=== PATIENT | female | born 1955 | race African-American/Black ===

== ENCOUNTER 2021-05-06 07:22 | Emergency (ER) | payer BC, OTHER ==
[~2021-05-06] VITALS: Ht 167.6 cm; Wt 100.0 kg
[2021-05-06] MEDS ORDERED: KETOROLAC 30MG/ML VIAL IV STA (07:46)
[2021-05-06] MEDS ORDERED: METOCLOPRAMIDE HCL 10MG/2ML VIAL IV ONE (08:00)
[2021-05-06 10:01] LABS: BASOPHILS % 0.4 % (0.0-2.0); EOSINOPHILS % 0.1 % (0.0-5.0); HEMATOCRIT. 36.5 % (36.0-48.0); HEMOGLOBIN. 12.1 g/dL (12.0-16.0); LYMPHOCYTES % 17.9 % (20.0-50.0); MEAN CORPUSCULAR VOLUME 93.3 fL (81.0-99.0); MEAN PLATELET VOLUME 9.5 fl (7.4-10.4); MONOCYTES % 10.1 % (2.0-8.0); NEUTROPHILS % 71.5 % (40.0-76.0); PLATELET 234 x1000/uL (130-400); RED BLOOD CELL COUNT 3.91 mill/uL (4.2-5.4); RED CELL DISTRIBUTION WIDTH 13.4 % (11.6-14.6)
[2021-05-06 10:09] LABS: CHLORIDE 102 mEq/L (98-107)
[2021-05-06 11:22] LABS: CLARITY URINE CLEAR (CLEAR); COLOR URINE YELLOW (YELLOW); KETONES URINE NEGATIVE (NEGATIVE); LEUKOCYTE ESTERASE URINE NEGATIVE (NEGATIVE); NITRITE URINE NEGATIVE (NEGATIVE); OCCULT BLOOD URINE TRACE (NEGATIVE); PH URINE 6.5 (4.5-8.0); PROTEIN URINE NEGATIVE (NEGATIVE); SPECIFIC GRAVITY URINE 1.009 (1.005-1.030); UROBILINOGEN URINE 0.2 E.U./dL (0.2-1.0)
[2021-05-06] MEDS ORDERED: TOPUD PO (11:32)
[2021-05-06] MEDS ORDERED: METO-293 PO (11:32)
[2021-05-06 12:04] VITALS: BP 140/68
== END 2021-05-06 12:04 | disposition home or self-care (01) ==
LOC: ER 07:22
DX: R10.30 Lower abdominal pain, unspecified (principal); R51.9 Headache, unspecified
CPT/HCPCS: 36415; 74176; 80053; 81003; 83690; 85025; 96374; 96375; 99284; J1885; J2765

== ENCOUNTER 2023-04-25 22:17 | Emergency (ER) | payer BC, MEDICARE ==
[~2023-04-25] VITALS: Ht 167.6 cm; Wt 82.0 kg
[~2023-04-25 22:17] MED LIST: METO-293 PO; TOPUD PO
[2023-04-25 22:18] VITALS: O2SAT 98
[2023-04-25 23:00] LABS: BASOPHILS % 0.2 % (0.0-2.0); EOSINOPHILS % 0.7 % (0.0-5.0); HEMATOCRIT. 35.8 % (36.0-48.0); HEMOGLOBIN. 11.7 g/dL (12.0-16.0); LYMPHOCYTES % 23.8 % (20.0-50.0); MEAN CORPUSCULAR HEMOGLOBIN 31.4 pg (28.0-32.0); MEAN CORPUSCULAR HGB CONC 32.6 g/dL (31.0-37.0); MEAN CORPUSCULAR VOLUME 96.2 fL (81.0-99.0); MEAN PLATELET VOLUME 9.5 fl (7.4-10.4); MONOCYTES % 6.1 % (2.0-8.0); NEUTROPHILS % 69.2 % (40.0-76.0); PLATELET 254 x1000/uL (130-400); RED BLOOD CELL COUNT 3.72 mill/uL (4.2-5.4); WHITE BLOOD COUNT 6.7 x1000/uL (4.5-11.0)
[2023-04-25 23:12] LABS: ALANINE AMINOTRANSFERASE 20 IU/L (10-49); ALBUMIN 4.3 g/dL (3.2-4.8); ASPARTATE AMINOTRANSFERASE 21 IU/L (<34); BILIRUBIN TOTAL 0.4 mg/dL (0.1-1.0); CALCIUM 9.7 mg/dL (8.7-10.4); CARBON DIOXIDE 28 mEq/L (21-32); CHLORIDE 104 mEq/L (98-107); CREATININE 0.7 mg/dL (0.6-1.0); GLUCOSE 124 mg/dL (70-105); POTASSIUM 3.7 mEq/L (3.5-5.1); PROTEIN TOTAL 7.5 g/dL (6.0-8.3); SODIUM 139 mEq/L (136-145); TROPONIN I HIGH SENSITIVITY 4 ng/L (3.0-34); UREA NITROGEN BLOOD 10 mg/dL (9-23)
[2023-04-26 01:34] LABS: TROPONIN I HIGH SENSITIVITY 6 ng/L (3.0-34)
[2023-04-26 01:50] VITALS: BP 147/79; PULSE 74; RESP 18; TEMP 98.2
== END 2023-04-26 01:50 | disposition left against medical advice (07) ==
LOC: ER 22:17 → EDBEDREQSVC 04-26 00:55 → EDBEDREQ 04-26 00:55 → EDBEDREQSVC 04-26 00:56 → ER 04-26 01:50 → CANBEDREQ 04-26 01:52
DX: R55 Syncope and collapse (principal); I10 Essential (primary) hypertension; Z98.890 Other specified postprocedural states; Z86.73 Personal history of transient ischemic attack (TIA), and cerebral infarction without residual deficits
CPT/HCPCS: 36415; 71045; 80053; 83605; 83880; 84484; 85025; 85379; 93005; 99285